=== PATIENT | male | born 1940 | race Caucasian/White ===

== ENCOUNTER 2020-12-01 08:35 | Outpatient (CLI) | payer MEDICARE | END 2020-12-01 08:36 | disposition home or self-care (01) | LOC: CSHWCC 08:35 | PROVIDERS: ATTEND Nurse Practitioner Family | DX: I87.313 Chronic venous hypertension (idiopathic) with ulcer of bilateral lower extremity (principal); I87.2 Venous insufficiency (chronic) (peripheral); E11.628 Type 2 diabetes mellitus with other skin complications; E11.649 Type 2 diabetes mellitus with hypoglycemia without coma; L97.812 Non-pressure chronic ulcer of other part of right lower leg with fat layer exposed; L97.822 Non-pressure chronic ulcer of other part of left lower leg with fat layer exposed; L97.222 Non-pressure chronic ulcer of left calf with fat layer exposed; E03.8 Other specified hypothyroidism; E78.2 Mixed hyperlipidemia; I10 Essential (primary) hypertension; I48.91 Unspecified atrial fibrillation; R60.0 Localized edema | CPT/HCPCS: 11042; 11045; 29581; 99204; G0463 ==

== ENCOUNTER 2020-12-14 10:43 | Outpatient (CLI) | payer MEDICARE | END 2020-12-14 10:44 | disposition home or self-care (01) | LOC: CSHWCC 10:43 | PROVIDERS: ATTEND Nurse Practitioner Family | DX: I87.311 Chronic venous hypertension (idiopathic) with ulcer of right lower extremity (principal); I87.312 Chronic venous hypertension (idiopathic) with ulcer of left lower extremity; L97.812 Non-pressure chronic ulcer of other part of right lower leg with fat layer exposed; L97.822 Non-pressure chronic ulcer of other part of left lower leg with fat layer exposed; L97.222 Non-pressure chronic ulcer of left calf with fat layer exposed; R60.0 Localized edema; E03.8 Other specified hypothyroidism; E11.628 Type 2 diabetes mellitus with other skin complications; E11.649 Type 2 diabetes mellitus with hypoglycemia without coma; E78.2 Mixed hyperlipidemia; I10 Essential (primary) hypertension; I48.91 Unspecified atrial fibrillation; I87.2 Venous insufficiency (chronic) (peripheral) | CPT/HCPCS: 29581; 97139; G0463; 99213 ==

== ENCOUNTER 2020-12-28 12:15 | Outpatient (CLI) | payer MEDICARE | END 2020-12-28 12:16 | disposition home or self-care (01) | LOC: CSHWCC 12:15 | PROVIDERS: ATTEND Nurse Practitioner Family | DX: I87.312 Chronic venous hypertension (idiopathic) with ulcer of left lower extremity (principal); I87.311 Chronic venous hypertension (idiopathic) with ulcer of right lower extremity; L97.222 Non-pressure chronic ulcer of left calf with fat layer exposed; L97.822 Non-pressure chronic ulcer of other part of left lower leg with fat layer exposed; L97.812 Non-pressure chronic ulcer of other part of right lower leg with fat layer exposed; R60.0 Localized edema; E03.8 Other specified hypothyroidism; E11.628 Type 2 diabetes mellitus with other skin complications; E11.649 Type 2 diabetes mellitus with hypoglycemia without coma; E78.2 Mixed hyperlipidemia; I10 Essential (primary) hypertension; I48.91 Unspecified atrial fibrillation; I87.2 Venous insufficiency (chronic) (peripheral) | CPT/HCPCS: 11104; 97139; G0463; 88305; 88312; 99213 ==

== ENCOUNTER 2021-01-04 09:26 | Outpatient (CLI) | payer MEDICARE | END 2021-01-04 09:27 | disposition home or self-care (01) | LOC: CSHWCC 09:26 | PROVIDERS: ATTEND Nurse Practitioner Family | DX: I87.311 Chronic venous hypertension (idiopathic) with ulcer of right lower extremity (principal); I87.312 Chronic venous hypertension (idiopathic) with ulcer of left lower extremity; L97.812 Non-pressure chronic ulcer of other part of right lower leg with fat layer exposed; L97.222 Non-pressure chronic ulcer of left calf with fat layer exposed; L97.822 Non-pressure chronic ulcer of other part of left lower leg with fat layer exposed; R60.0 Localized edema; E03.8 Other specified hypothyroidism; E11.628 Type 2 diabetes mellitus with other skin complications; E11.649 Type 2 diabetes mellitus with hypoglycemia without coma; E78.2 Mixed hyperlipidemia; I10 Essential (primary) hypertension; I48.91 Unspecified atrial fibrillation; I87.2 Venous insufficiency (chronic) (peripheral) | CPT/HCPCS: 97139; G0463; 99213 ==